=== PATIENT | male | born 1955 | race Caucasian/White ===

== ENCOUNTER 2017-04-10 12:25 | Day surgery (SDC) | payer BC ==
[~2017-04-10] VITALS: Ht 170.2 cm; Wt 88.4 kg
[2017-04-10 12:57] VITALS: BP 120/85; PULSE 77; TEMP 98.2
[2017-04-10 14:45] VITALS: BP 104/70; PULSE 78; TEMP 97.9
[2017-04-10 15:00] VITALS: BP 101/75; PULSE 77
== END 2017-04-10 15:30 | disposition home or self-care (01) ==
LOC: SDCO 12:25
DX: Z12.11 Encounter for screening for malignant neoplasm of colon (principal); K57.30 Diverticulosis of large intestine without perforation or abscess without bleeding; K64.0 First degree hemorrhoids
CPT/HCPCS: OP; J2250; J3010; J7030